=== PATIENT | female | born 1940 | race Caucasian/White ===

== ENCOUNTER → 2022-05-27 10:21 | Outpatient (BNVA) | payer MEDICARE, SELFPAY | PROVIDERS: PCP Internal Medicine; Visit Provider Psychiatry & Neurology Neurology | DX: H83.09 Labyrinthitis, unspecified ear (principal); R26.9 Unspecified abnormalities of gait and mobility; D32.9 Benign neoplasm of meninges, unspecified | CPT/HCPCS: 99202 ==